=== PATIENT | female | born 2000 | race Caucasian/White ===

== ENCOUNTER 2023-02-10 13:28 | Emergency (ER) | payer BC | END 2023-02-10 14:00 | disposition home or self-care (01) | LOC: ERS 13:28 | DX: L50.9 Urticaria, unspecified (principal); F17.290 Nicotine dependence, other tobacco product, uncomplicated | CPT/HCPCS: 99283 ==

== ENCOUNTER 2023-06-27 17:30 | Outpatient (CLI) | payer BC | END 2023-06-27 17:31 | disposition home or self-care (01) | LOC: SLEEPLAB 17:30 | PROVIDERS: ATTEND Family Medicine | DX: G47.33 Obstructive sleep apnea (adult) (pediatric) (principal); F51.9 Sleep disorder not due to a substance or known physiological condition, unspecified; R53.83 Other fatigue | CPT/HCPCS: 95800 ==